=== PATIENT | female | born 1930 | race Caucasian/White ===

== ENCOUNTER 2017-02-11 17:26 | Emergency (ER) | payer MEDICARE, BC ==
[~2017-02-11] VITALS: Ht 157.5 cm; Wt 56.4 kg
[2017-02-11 17:29] VITALS: TEMP 97
[2017-02-11] MEDS ORDERED: EVISTA 60MG60 MG/TAB PO (17:45)
[2017-02-11] MEDS ORDERED: PRINZIDE 12.5 M1 TA1 PO (17:45)
[2017-02-11] MEDS ORDERED: SYNTHROID0.1 MG/TAB PO (17:45)
[2017-02-11] MEDS ORDERED: NORVASC2.5 MG PO (17:45)
[2017-02-11 18:15] LABS: BASO % 0.4 % (0.0-2.0); EOS # 0.1 (0.0-0.7); EOS % 0.8 % (0-4.0); GRAN # 5.8 (1.4-6.5); GRAN % 77.6 % (42.2-75.2); HEMATOCRIT 39.3 % (37.0-47.0); HEMOGLOBIN 12.8 g/dl (12.5-16.0); LYMPH # 1.1 (1.2-3.4); LYMPH % 14.1 % (20.0-51.0); MEAN CELL VOLUME 96 fl (80.0-100.0); MEAN CORPUSCULAR HEMOGLOBIN 31 pg (27.0-31.0); MEAN CORPUSCULAR HGB CONC 33 g/dl (33.0-37.0); MEAN PLATELET VOLUME 10.6 fl (7.4-10.4); MONO # 0.5 (0.1-0.6); MONO % 6.8 % (1.7-9.3); PLATELET COUNT 182 K/mm3 (130-400); RED BLOOD COUNT 4.11 M/mm3 (4.10-5.30); WHITE BLOOD COUNT 7.5 K/mm3 (4.8-10.8)
[2017-02-11 18:20] LABS: PROTHROMBIN TIME 11.4 SECONDS (9.7-12.8)
[2017-02-11 18:22] LABS: PARTIAL THROMBOPLASTIN TIME 24.1 SECONDS (26.0-37.0)
[2017-02-11 18:27] LABS: ADJUSTED CALCIUM 9.5 mg/dL (8.4-10.2); ALANINE AMINOTRANSFERASE 34 U/L (9-52); ALBUMIN 4.5 gm/dL (3.5-5.0); ALKALINE PHOSPHATASE 53 U/L (50-136); AMYLASE 140 U/L (30-110); BILIRUBIN,TOTAL 0.4 mg/dL (0.0-1.0); BLOOD UREA NITROGEN 33 mg/dL (7-17); CALCIUM 9.9 mg/dL (8.4-10.2); CARBON DIOXIDE 29 mmol/L (22-30); CREATININE, serum 1.19 mg/dL (0.52-1.25); GLUCOSE 99 mg/dL (74-106); LIPASE 242 U/L (23-300); POTASSIUM 4.2 mmol/L (3.4-5.0); SODIUM 140 mmol/L (137-145); TOTAL PROTEIN 7.6 gm/dL (6.4-8.2)
[2017-02-11 18:28] LABS: CHLORIDE 100 mmol/L (98-107)
[2017-02-11 18:30] LABS: ANION GAP 11 mmol/L (7-16)
[2017-02-11 18:38] LABS: TROPONIN-I < 0.012 ng/mL (0.000-0.034)
[2017-02-11 21:28] VITALS: BP 143/75; PULSE 70
== END 2017-02-11 22:05 | disposition home or self-care (01) ==
LOC: COL.ER 17:26
PROVIDERS: Emergency Medicine
DX: R10.13 Epigastric pain (principal); I10 Essential (primary) hypertension; E03.9 Hypothyroidism, unspecified; Z90.49 Acquired absence of other specified parts of digestive tract; Z90.710 Acquired absence of both cervix and uterus
CPT/HCPCS: J7030